=== PATIENT | male | born 1990 | race Two or more races ===

== ENCOUNTER 2017-05-19 05:14 | Emergency (ER) | payer SELFPAY ==
[~2017-05-19] VITALS: Ht 175.3 cm; Wt 77.2 kg
[2017-05-19 05:47] LABS: HEMATOCRIT 43.5 % (38.0-50.0); MCHC 35.2 G/DL (30.0-36.0); MCV 82.4 FL (86-99); MEAN PLAT.VOLUME 10.4 uM^3 (9.0-12.4); PLATELET COUNT 97 K/uL (156-360); RBC DIS.WIDTH-CV 12.7 % (11.8-14.6); RBC DIS.WIDTH-SD 38.5 % (39-53); RED BLOOD COUNT 5.28 M/uL (4.00-5.50); WHITE BLOOD COUNT 3.7 K/uL (4.1-10.2)
[2017-05-19 06:07] LABS: CHLORIDE 100 mEq/L (99-109); POTASSIUM 4.1 mEq/L (3.7-5.4); SODIUM 134 mEq/L (136-147)
[2017-05-19 06:09] LABS: GLUCOSE 126 mg/dL (70-99)
[2017-05-19 06:10] LABS: ANION GAP 10 MEQ/L (2-14)
[2017-05-19 06:11] LABS: TOTAL BILIRUBIN 0.6 mg/dL (0.0-1.0)
[2017-05-19 06:12] LABS: ALKALINE PHOSPHATASE 69 IU/L (3-129)
[2017-05-19 06:13] LABS: GFR ESTIMATE (CALCULATED) > 59 mL/min/
[2017-05-19 06:14] LABS: UREA NITROGEN (BUN) 5 mg/dL (9-23)
[2017-05-19 06:20] LABS: ADD MIUA? NO; BILIRUBIN NEGATIVE; BLOOD NEGATIVE; COLOR YELLOW ((YELLOW)); GLUCOSE (STRIP) NEGATIVE; KETONES NEGATIVE; LEUKOCYTES NEGATIVE; NITRITE NEGATIVE; PROTEIN (STRIP) NEGATIVE; SPECIFIC GRAVITY 1.006 (1.000-1.030); UROBILINOGEN 0.2 MG/DL (0.2-1.0)
[2017-05-19 06:39] LABS: INFLUENZA A VIRAL ANTIGEN NEGATIVE; INFLUENZA B VIRAL ANTIGEN NEGATIVE
[2017-05-19 07:10] LABS: ABS NEUTROPHIL COUNT 2.6; ATYPICAL LYMPHOCYTE 5.3 %; BAND NEUTROPHILS 22.1 % (0-8.0); EOSINOPHIL ABS CT 0; EOSINOPHILS 0.9 % (0-5.0); INSTRUMENT ABS NEUTROPHIL CT 2.2 K/uL; LYMPHOCYTES 20.3 % (15.0-45.0); PLAT.SUFFICIENCY DECREASED; SMUDGE CELLS 11.5
[2017-05-19 07:11] LABS: SEG.NEUTROPHILS 48.7 % (46.0-76.0)
[2017-05-19 09:58] VITALS: BP 118/72
== END 2017-05-19 09:59 | disposition home or self-care (01) ==
LOC: EME 05:14
PROVIDERS: Emergency Medicine
DX: R50.9 Fever, unspecified (principal); R11.2 Nausea with vomiting, unspecified
CPT/HCPCS: 70450; 71020; 74177; 80053; 81003; 83605; 85007; 85025; 86790 90; 87040; 87207; 87449 90; 87502; 99281; 99285; J1885; J2405; J7030